=== PATIENT | female | born 1970 | race Caucasian/White ===

== ENCOUNTER 2022-06-03 16:11 | Outpatient (CLI) | payer BC, SELFPAY ==
[2022-06-03 17:30] LABS: Albumin* 4.6 g/dL (3.3-5.0); Chloride* 103 mmol/L (96-114); Sodium* 138 mmol/L (135-149)
[2022-06-03 17:33] LABS: Alanine Aminotransferase* 15 U/L (4-35); Alkaline Phosphatase* 71 U/L (40-150); Aspartate Amino Transferase* 23 U/L (12-35); Bilirubin Total* 0.7 mg/dL (0.1-1.5); Blood Urea Nitrogen* 16 mg/dL (7-30); Carbon Dioxide* 28 mmol/L (20-32); Creatinine* 0.8 mg/dL (0.5-1.5); Estimated Glomerular Filt Rate 88 ml/min; Glucose* 101 mg/dL (60-115); Total Protein* 6.9 g/dL (6.0-8.3)
[2022-06-03 17:34] LABS: Calcium* 9.2 mg/dL (8.4-10.6); Magnesium* 2.3 mg/dL (1.5-2.6)
== END 2022-06-03 16:12 | disposition home or self-care (01) ==
PROVIDERS: PCP Internal Medicine; Visit Provider Internal Medicine
DX: F41.9 Anxiety disorder, unspecified (principal)
CPT/HCPCS: 80053; 83735; 84443

== ENCOUNTER 2022-08-17 12:33 | Outpatient (CLI) | payer BC, SELFPAY ==
[2022-08-17 14:07] LABS: Cholesterol* 233 mg/dL (90-199)
[2022-08-17 14:08] LABS: HDL Cholesterol* 92 mg/dL (>=50); LDL Cholesterol Calculated 128 mg/dL (<100); Triglycerides* 64 mg/dL (40-149)
[2022-08-17 17:29] LABS: Chlamydia DNA Amplified* NOT DETECTED (No Detected); GC DNA Amplified* NOT DETECTED (No Detected)
== END 2022-08-17 12:34 | disposition home or self-care (01) ==
PROVIDERS: PCP Internal Medicine; Visit Provider Registered Nurse
DX: Z01.419 Encounter for gynecological examination (general) (routine) without abnormal findings (principal); Z13.6 Encounter for screening for cardiovascular disorders; Z11.3 Encounter for screening for infections with a predominantly sexual mode of transmission
CPT/HCPCS: 80061; 87491; 87591

== ENCOUNTER 2022-08-26 08:20 | Outpatient (CLI) | payer BC, SELFPAY ==
--- NOTE | 2022-08-26 08:45 | CRLHL7_ITS ---
For Patients: As a result of the Century Cures Act, medical imaging exams and procedure reports are released immediately into your electronic medical record. You may view this report before your referring provider. If you have questions, please contact your health care provider. INDICATION: Irregular menses. TECHNIQUE: Transabdominal and transvaginal pelvic ultrasound. FINDINGS: The uterus measures 9.0 x 5.4 x 6.7 cm. The endometrial stripe measures 12 mm transvaginally normal in a premenopausal female. Within the mid anterior upper uterine body there is a questionable isoechoic region measuring 2.3 x 0.8 x 1.1 cm. This could reflect an atypical appearing fibroid but this is not entirely certain. This does not convincingly impinge upon the endometrial stripe. Minimal free pelvic fluid likely physiologic. Normal appearing right ovary measured 3.7 x 1.5 x 2.1 cm. Normal-appearing left ovary measuring 3.2 x 1.3 x 1.1 cm. Blood flow is identified in the ovaries. IMPRESSION: 1. Endometrial stripe of 12 mm. This can be normal in a premenopausal female. 2. Questionable isoechoic lesion within the mid upper uterine myometrium somewhat nonspecific potentially an atypical appearing fibroid. 3. Normal ovaries. Dictated by Yefri Moyer MD @ 08/26/2022 9:39:43 AM (Electronically Signed)
== END 2022-08-26 08:21 | disposition home or self-care (01) ==
LOC: US 08:21
PROVIDERS: PCP Internal Medicine; Visit Provider Registered Nurse
DX: N92.6 Irregular menstruation, unspecified (principal); R93.89 Abnormal findings on diagnostic imaging of other specified body structures
CPT/HCPCS: 76830; 76856

== ENCOUNTER 2023-04-26 13:28 | Outpatient (CLI) | payer BC, SELFPAY ==
--- NOTE | 2023-04-26 13:40 | CRLHL7_ITS ---
For Patients: As a result of the Century Cures Act, medical imaging exams and procedure reports are released immediately into your electronic medical record. You may view this report before your referring provider. If you have questions, please contact your health care provider. BILATERAL SCREENING MAMMOGRAM WITH COMPUTER-AIDED DETECTION AND TOMOSYNTHESIS TECHNIQUE: CC and MLO views were obtained. These mammographic images have been obtained using full-field digital technique. These mammographic images were interpreted with the benefit of computer-aided detection. Breast Tomosynthesis was used in this interpretation. COMPARISON FILM: 11/26/21, 05/14/20, 08/29/18. FINDINGS: The breasts are heterogeneously dense, which may obscure small masses IMPRESSION: There is no radiographic evidence for malignancy. ASSESSMENT: BI-RADS Category 1: Negative RECOMMENDATION: Routine screening mammogram in 1 year. A lay language report of this examination will be provided to the patient. Aditya Brennan M.D. Diagnostic Radiologist [email or web address] YIFAN/Dictated by: Aditya Brennan MD @ 04/28/2023 12:53:00 PM (Electronically Signed)
== END 2023-04-26 13:29 | disposition home or self-care (01) ==
LOC: MAMMO 13:29
PROVIDERS: PCP Family Medicine; Visit Provider Family Medicine
DX: Z12.31 Encounter for screening mammogram for malignant neoplasm of breast (principal); R92.2 Inconclusive mammogram
CPT/HCPCS: 77063; 77067

== ENCOUNTER 2023-09-01 08:01 | Outpatient (CLI) | payer BC, SELFPAY | END 2023-09-01 08:02 | disposition home or self-care (01) | LOC: NFLDREF 09-14 08:43 | PROVIDERS: PCP Family Medicine; Referring Provider Family Medicine; Visit Provider Registered Nurse | DX: Z01.419 Encounter for gynecological examination (general) (routine) without abnormal findings (principal); Z13.6 Encounter for screening for cardiovascular disorders; Z13.29 Encounter for screening for other suspected endocrine disorder | CPT/HCPCS: 80061; 84443 ==

== ENCOUNTER 2023-09-08 10:53 | Outpatient (CLI) | payer BC, SELFPAY | END 2023-09-08 10:54 | disposition home or self-care (01) | LOC: NFLDREF 10:53 | PROVIDERS: PCP Family Medicine; Visit Provider Family Medicine | DX: I10 Essential (primary) hypertension (principal) | CPT/HCPCS: 80053 ==

== ENCOUNTER 2023-10-07 08:58 | Outpatient (CLI) | payer BC, SELFPAY | END 2023-10-07 08:59 | disposition home or self-care (01) | LOC: NFLDREF 10-14 07:43 | PROVIDERS: PCP Family Medicine; Referring Provider Family Medicine; Visit Provider Family Medicine | DX: I10 Essential (primary) hypertension (principal) | CPT/HCPCS: 80048 ==

== ENCOUNTER 2023-10-28 11:20 | Emergency (ER) | payer BC, SELFPAY ==
[2023-10-28 11:30] VITALS: BP 148/86; PULSE 75; RESP 18; TEMP 36.8; O2SAT 100; BMI 27.4
--- NOTE | 2023-10-28 11:39 | ED.GENADULT ---
HPI - General Adult General Time Seen by Provider: 11:39 Date Seen: 10/28/23 Chief complaint: Dizziness/Vertigo Stated complaint: nausea / dizzy / tingly limbs Time Seen by Provider: 10/28/23 11:26 Source: patient and RN notes reviewed Mode of arrival: ambulatory Limitations: no limitations History of Present Illness HPI narrative: This 53yo female is coming into the ED after calling clinic for a multitude of symptoms that have been present over the past week. She started feeling dizzy/lightheaded about a week ago, not spinning. She has felt exhausted and weak, difficulty sleeping this past week. She notes today that she is having upper abdominal discomfort with some heartburn symptoms, some regurgitant feeling and nausea. She did try a new smoothie recipe this am and wonders if this is contributing. She is on Losartan 25mg for blood pressure, started in August. She is on venlaxfaxine 150mg which was increased about 2 months ago from 75mg. She has felt imbalanced with walking at times. Her had to help her with the stairs couple nights ago. She did complete a 45minute walk this am. She feels that her cheeks on her face and her arms feel tingly, not numb, right now. Does feel some chest discomfort that she attributes to the heartburn feeling right now. She noted a bruise that just cross it up on her right outer arm, remembers no trauma. She is noting no bleeding of her gums when brushing her teeth. Related Data Home Medications Medication Instructions Recorded Confirmed multivitamin 1 tab PO QAM 08/17/22 10/12/23 cholecalciferol (vitamin D3) 25 25 mcg PO QDAY 03/16/23 10/12/23 mcg (1,000 unit) capsule vitamin B complex 2 cap PO QDAY 03/16/23 10/12/23 biotin 10,000 mcg/mL (10 mg/mL) mcg PO 08/31/23 10/12/23 oral liquid magnesium mal, threon, chelate mg PO 08/31/23 10/12/23 venlafaxine 150 mg 150 mg PO DAILY 08/31/23 10/12/23 capsule,extended release 24 hr Previous Rx's Medication Instructions Recorded losartan 25 mg tablet 25 mg PO QDAY #90 tabs 10/12/23 Allergies Allergy/AdvReac Type Severity Reaction Status Date / Time nitrofurantoin Allergy Intermediate Hives Verified 10/12/23 13:24 [From Macrobid] lanolin Allergy Mild Rash Verified 10/12/23 13:24 Review of Systems Status of ROS: Reports: 6 or more systems reviewed and unremarkable except as noted in History and below [facility] Medical History Hypertension ?I10 - Essential (primary) hypertension (ICD-10) Depression (02/09/10) ?F32.A - Depression, unspecified (ICD-10) Osteopenia ?M85.80 - Other specified disorders of bone density and structure, unspecified site (ICD-10) Central nervous system disorder (2014) ?G96.9 - Disorder of central nervous system, unspecified (ICD-10) Major depressive disorder (~2009) ?F32.9 - Major depressive disorder, single episode, unspecified (ICD-10) Surgical History History of colposcopy with cervical biopsy (09/2023) ?Z98.890 - Other specified postprocedural states (ICD-10) History of dilatation and curettage (2010) ?Z98.890 - Other specified postprocedural states (ICD-10) History of section (2011) ?Z98.891 - History of uterine scar from previous surgery (ICD-10) History of benign breast biopsy (1991) ?Z98.890 - Other specified postprocedural states (ICD-10) Family History Father Colon cancer, Onset Age: 80 Marquez syndrome Prostate cancer Paternal Grandmother Myocardial infarction, Onset Age: 75 Mother Breast cancer, Onset Age: 36 Family/Other Uterine cancer Depression Maternal Grandmother Breast cancer, Onset Age: 73 Aunt Breast cancer, Onset Age: 61 Stroke, Onset Age: 95 Paternal Grandfather Depression Family/Other Depression Social History Narrative: Patient is lives in same house with ex- for 3 years, works as a psych cut therapist in private practice, 1 son A exercise 1 to 2 times a week walking or swimming 45 minutes Nonsmoker About 4 alcoholic drinks a week What is your current living situation?: I presently have a place to live Problems where you live: no known problems In the past 12 months, utilities in danger of being shut off: no In past 12 months, lack of transportation kept you from medical appts, meetings, work, or getting things needed for daily living: no In the past 12 mos, have been you worried that your food would run out before you had money to buy more?: never true In the past 12 mos, the food you bought just didn't last and you didn't have money to buy more?: never true Smoking Status: Never smoker How often do you have a drink containing alcohol: never How often do you have six or more drinks on one occasion: Never AUDIT-C Alcohol total score: 0 Non-prescribed substance use: denies use How often does anyone, including family, friends and others, physically hurt you: never How often does anyone, including family, friends and others, insult or talk down to you: never How often does anyone, including family, friends and others, threaten you with harm: never How often does anyone, including family, friends and others, scream or curse at you: never Little interest or pleasure in doing things: more than half the days Feeling down, depressed, or hopeless: several days service: No Exam Const: Vital Signs, click to edit/add: Vital Signs - 24 hr 10/28/23 11:30 10/28/23 11:46 10/28/23 11:46 Temperature 98.2 F Pulse Rate [Pulse Oximeter] 75 Pulse Rate [orthos tatic lying Right Pulse Oximeter] 69 Pulse Rate [orthos tatic sitting Righ t Pulse Oximeter] 80 Pulse Rate [orthos tatic standing Rig ht Pulse Oximeter] 76 Respiratory Rate 18 Blood Pressure [Ri ght Upper Arm] 148/86 H Blood Pressure [or thostatic lying Ri ght Arm] 133/73 Blood Pressure [or thostatic sitting Right Arm] 118/83 Blood Pressure [or thostatic standing Right Arm] 129/96 H Pulse Oximetry 100 98 Oxygen Delivery Me thod Room Air Patient is alert, interactive, no apparent distress, well kept. Pupils equal round reactive, conjugate gaze, extraocular muscles intact. Normal symmetrical facial function. She feels light touch sensation symmetrically. Speech is normal. Neck supple, no adenopathy or masses. Lungs are clear, good air entry, no wheezing or crackles. CV regular rate and rhythm, no murmur, normal S1-S2, no S3-S4. Abdomen is soft, nontender, nondistended, no organomegaly, no rebound or guarding. She has no lower extremity edema. Patient was ambulatory into the ED of her own accord. No focal deficits noted in sensation, strength. She has no tremors. Small quarter-size purplish bruise on her outer right upper arm. No petechiae or significant bruising noted elsewhere. Documenting provider has reviewed patient's vital signs: yes Course Course ED Course: Patient has symptoms within multiple organ systems. She is complaining of lightheadedness/dizziness, sense of imbalance at times as well as heartburn, nausea, some upper abdominal discomfort, possible bruising but only 1 site on her arm. She will be on pulse oximetry and cardiac monitoring while here. Will obtain a head CT. Will get a full complement of labs. She will also have COVID testing done. Reevaluation(s) Time of Reevaluation #1: 14:00 Reevaluation #1: Reviewed normal head CT, normal labs with patient, no COVID, normal thyroid. She and I reviewed that I would like a 2nd it troponin on her. She feels her heartburn type symptoms started around 10:00 a.m. this morning. I would just like to get a follow-up troponin, if this is normal, do feel we can safely say that this is not an acute ischemic cardiac event. We did discuss omeprazole or proton pump inhibitor. She states she typically would just use yogurt if she is having some heartburn issues. She is not orthostatic based on vitals obtain by nursing staff. If 2nd troponin is negative, will discharge to home for further outpatient follow-up. Vital Signs Vital signs: Initial Vital Signs Temperature 98.2 F 10/28/23 11:30 Temperature Source Temporal Artery Scan 10/28/23 11:30 Pulse Rate 75 10/28/23 11:30 Pulse Rhythm Regular 10/28/23 11:30 Respiratory Rate 18 10/28/23 11:30 Blood Pressure 148/86 H 10/28/23 11:30 Blood Pressure Mean 106 H 10/28/23 11:30 Blood Pressure Position Supine 10/28/23 11:30 Pulse Oximetry 100 10/28/23 11:30 Oxygen Delivery Method Room Air 10/28/23 11:30 Vital Signs Temperature 98.2 F 10/28/23 11:30 Pulse Rate 75 10/28/23 11:30 Respiratory Rate 18 10/28/23 11:30 Blood Pressure 148/86 H 10/28/23 11:30 Pulse Oximetry 100 10/28/23 11:30 Oxygen Delivery Method Room Air 10/28/23 11:30 Temperature 98.2 F 10/28/23 11:30 Pulse Rate 69 10/28/23 11:46 Respiratory Rate 18 10/28/23 11:30 Blood Pressure 133/73 10/28/23 11:46 Pulse Oximetry 98 10/28/23 11:46 Oxygen Delivery Method Room Air 10/28/23 11:30 Medical Decision Making Lab Data Lab results reviewed: Yes I reviewed the patient's lab results Labs: Lab Results 10/28/23 10/28/23 10/28/23 Range/Units 12:21 12:44 14:01 WBC 5.78 (4.50-11.00) K/uL RBC 4.40 (4.00-5.20) m/uL Hgb 14.4 (12.0-16.0) gm/dL Hct 41.5 (33.0-51.0) % MCV 94 (80-100) fL MCH 33 (26-34) pg MCHC 35 (32-36) gm/dL RDW Coeff of Tony 11.5 (11.5-15.5) % Plt Count 332 (140-440) K/uL Neut % (Auto) 72.0 (42.0-72.0) % Lymph % (Auto) 17.5 L (20-44) % Lamar % (Auto) 8.1 (0.0-11.0) % Eos % (Auto) 1.7 (0.0-7.0) % Baso % (Auto) 0.7 (0.0-3.0) % Neut # (Auto) 4.16 (1.7-7.0) K/uL Lymph # (Auto) 1.00 (0.90-2.90) K/uL Lamar # (Auto) 0.50 (0.00-0.90) K/UL Eos # (Auto) 0.10 (0.00-0.50) K/uL Baso # (Auto) 0.04 (0.00-0.30) K/uL Abs Immat Gran (auto) 0.00 (0.00-0.30) K/uL Imm/Tot Granulo (auto) 0.0 % ESR 2 (2-20) mm/hr Sodium 136 (135-149) mmol/L Potassium 4.1 (3.6-5.1) mmol/L Chloride 101 (96-114) mmol/L Carbon Dioxide 28 (20-32) mmol/L Anion Gap 7 (7-15) mEq/L BUN 15 (7-30) mg/dL Creatinine 0.8 (0.5-1.5) mg/dL Estimated Creat Clear 62.84 Estimated GFR 87 ml/min Glucose 107 (60-115) mg/dL Calcium 9.3 (8.4-10.6) mg/dL Magnesium 2.3 (1.5-2.6) mg/dL Total Bilirubin 0.8 (0.1-1.5) mg/dL Direct Bilirubin 0.0 (0.0-0.5) mg/dL AST 29 (12-35) U/L ALT 17 (4-35) U/L Alkaline Phosphatase 73 (40-150) U/L Troponin I < 0.01 L (0.01-0.04) ng/mL C-Reactive Protein 0.5 (0.5-1.0) mg/dL NT-Pro-B Natriuret Pep 39 pg/mL Total Protein 7.4 (6.0-8.3) g/dL Albumin 4.7 (3.3-5.0) g/dL Lipase 94 (23-300) U/L TSH 1.700 (0.270-4.200) uIU/mL SARS-CoV-2 (PCR) Negative SARS-CoV-2 (Negative) Influenza Type A (PCR) Negative PCR FLU A (Negative) Influenza Type B (PCR) Negative PCR FLU B (Negative) RSV (PCR) Negative PCR RSV (Negative) POC Troponin I 0.00 L (0.01-0.04) ng/ml Imaging Data CT scan - head: Attestation: I have reviewed the pertinent imaging results. Radiologist's impression: Patient: SUE ALBRECHT Facility:?[facility] RIS Patient ID:?[id number] Site Patient ID:?[id number]. Site :?1970 Study:?CT-Head w/o-10/28/2023 12:01:07 PM Ordering Physician:Wilfred Golden Final Report: INDICATION: Dizzy, imbalance, tingly arms/face, sx one week TECHNIQUE: CT head without contrast. COMPARISON: MRI brain August 02, 2018. FINDINGS: CSF spaces: Within normal limits for age. Brain parenchyma and extra-axial spaces: The woodard-white differentiation is normal. No sign of mass effect, hemorrhage, or midline shift. No extra-axial fluid collection. Skull base and calvarium: The visualized paranasal sinuses and mastoid air cells demonstrate no acute or significant findings. The visualized orbits are grossly unremarkable. No skull fractures. IMPRESSION: No evidence of acute intracranial abnormality on this unenhanced CT. Please note that all CT scans at this facility use dose modulation, iterative reconstruction, and/or weight-based dosing when appropriate to reduce radiation dose to as low as reasonably achievable. Dictated by Tad Issa MD @ 10/28/2023 12:16:58 PM (Electronic Signature) ECG Data Attestation: I personally reviewed and interpreted this ECG as follows: (Normal sinus rhythm, 67 beats per minute. Flipped T-waves V1, poor R-wave progression anterior precordial leads but no other ST segment changes or T-wave abnormality outside V1. QT corrected 420 milliseconds.) Prior ECG tracings: not available for review Discharge Plan Discharge Clinical Impression: Heartburn, Dizziness Patient Disposition: Home, Self-Care Condition: Stable Instructions: GERD (Gastroesophageal Reflux Disease) (ED), Dizziness (ED) Additional Instructions: Continue on current medications. Please schedule follow-up in clinic within the next week to review symptoms, especially if they are ongoing. If at any point you feel you are worsening, have new or concerning symptoms, we are always here in the ER to re-evaluate you. Activity Level: Activity as Tolerated Discharge Diet: Heart Healthy (2 gm sodium, low fat) Prescriptions: No Action multivitamin Tablet 1 tab PO QAM losartan 25 mg tablet 25 mg PO QDAY Qty: 90 3RF cholecalciferol (vitamin D3) 25 mcg (1,000 unit) capsule 25 mcg PO QDAY vitamin B complex Capsule 2 cap PO QDAY magnesium mal, threon, chelate 200 mg magnesium/scoop powder PO venlafaxine 150 mg capsule,extended release 24hr 150 mg PO DAILY biotin 10,000 mcg/mL liquid PO Follow Up/Referrals: Ines Epps MD [Primary Care Provider] - Stand Alone Forms: [facility] Info Instructions
[2023-10-28 11:46] VITALS: BP 118/83; BP 129/96; BP 133/73; PULSE 69; PULSE 76; PULSE 80; O2SAT 98
--- NOTE | 2023-10-28 11:46 | CT_ITS ---
Patient: SUE JIMÉNEZ WARREN Facility:?[facility] RIS Patient ID:?[id number] Site Patient ID:?[id number]. Site :?1970 Study:?CT-Head w/o-10/28/2023 12:01:07 PM Ordering Physician:Wilfred Golden Final Report: INDICATION: Dizzy, imbalance, tingly arms/face, sx one week TECHNIQUE: CT head without contrast. COMPARISON: MRI brain August 02, 2018. FINDINGS: CSF spaces: Within normal limits for age. Brain parenchyma and extra-axial spaces: The woodard-white differentiation is normal. No sign of mass effect, hemorrhage, or midline shift. No extra-axial fluid collection. Skull base and calvarium: The visualized paranasal sinuses and mastoid air cells demonstrate no acute or significant findings. The visualized orbits are grossly unremarkable. No skull fractures. IMPRESSION: No evidence of acute intracranial abnormality on this unenhanced CT. Please note that all CT scans at this facility use dose modulation, iterative reconstruction, and/or weight-based dosing when appropriate to reduce radiation dose to as low as reasonably achievable. Dictated by Tad Issa MD @ 10/28/2023 12:16:58 PM Signed by:?Tad Issa MD @10/28/2023 12:16:58 PM (Electronic Signature)
[2023-10-28 12:30] LABS: Basophils Absolute Auto 0.04 K/uL (0.00-0.30); Basophils Percent Auto 0.7 % (0.0-3.0); Eosinophils Percent Auto 1.7 % (0.0-7.0); Hematocrit 41.5 % (33.0-51.0); Hemoglobin* 14.4 gm/dL (12.0-16.0); Lymphocytes Percent Auto 17.5 % (20-44); Mean Corpuscular HGB Conc 35 gm/dL (32-36); Mean Corpuscular Hemoglobin 33 pg (26-34); Mean Corpuscular Volume 94 fL (80-100); Monocytes Percent Auto 8.1 % (0.0-11.0); Neutrophils Absolute Auto 4.16 K/uL (1.7-7.0); Platelet Count* 332 K/uL (140-440); RDW Coefficient of Variation % 11.5 % (11.5-15.5); White Blood Count* 5.78 K/uL (4.50-11.00)
[2023-10-28 12:35] LABS: Slide Review Reflex No
[2023-10-28 12:45] LABS: Albumin* 4.7 g/dL (3.3-5.0); Chloride* 101 mmol/L (96-114)
[2023-10-28 12:46] LABS: Potassium* 4.1 mmol/L (3.6-5.1); Sodium* 136 mmol/L (135-149)
[2023-10-28 12:48] LABS: Bilirubin Total* 0.8 mg/dL (0.1-1.5); Carbon Dioxide* 28 mmol/L (20-32); Creatinine* 0.8 mg/dL (0.5-1.5); Est. Creatinine Clearance* 62.84; Estimated Glomerular Filt Rate 87 ml/min
[2023-10-28 12:49] LABS: Alanine Aminotransferase* 17 U/L (4-35); Alkaline Phosphatase* 73 U/L (40-150); Anion Gap 7 mEq/L (7-15); Aspartate Amino Transferase* 29 U/L (12-35); Blood Urea Nitrogen* 15 mg/dL (7-30); Calcium* 9.3 mg/dL (8.4-10.6); Glucose* 107 mg/dL (60-115); Lipase* 94 U/L (23-300); Magnesium* 2.3 mg/dL (1.5-2.6); Total Protein* 7.4 g/dL (6.0-8.3)
[2023-10-28 12:51] LABS: C Reactive Protein* 0.5 mg/dL (0.5-1.0)
[2023-10-28 13:11] LABS: NT Pro B Type NatriureticPept* 39 pg/mL; Troponin I* < 0.01 ng/mL (0.01-0.04)
[2023-10-28 13:20] LABS: Erythrocyte SedimentationRate* 2 mm/hr (2-20)
[2023-10-28 13:34] LABS: PCR FLU A Negative PCR FLU A (Negative); PCR FLU B Negative PCR FLU B (Negative); PCR RSV Negative PCR RSV (Negative); SARS PCR* Negative SARS-CoV-2 (Negative)
== END 2023-10-28 14:58 | disposition home or self-care (01) ==
PROVIDERS: Emergency Provider Family Medicine; PCP Family Medicine
DX: R42 Dizziness and giddiness (principal); R12 Heartburn
CPT/HCPCS: 36415; 70450; 80053; 82248; 83690; 83735; 83880; 84443; 84484; 85025; 85651; 86140; 87631; 93005; 94761; 99284; 99285

== ENCOUNTER 2024-07-16 11:18 | Outpatient (CLI) | payer BC, SELFPAY ==
--- NOTE | 2024-07-16 11:30 | CRLHL7_ITS ---
For Patients: As a result of the Century Cures Act, medical imaging exams and procedure reports are released immediately into your electronic medical record. You may view this report before your referring provider. If you have questions, please contact your health care provider. BILATERAL SCREENING MAMMOGRAM WITH COMPUTER-AIDED DETECTION AND TOMOSYNTHESIS TECHNIQUE: CC and MLO views were obtained. These mammographic images have been obtained using full-field digital technique. These mammographic images were interpreted with the benefit of computer-aided detection. Breast Tomosynthesis was used in this interpretation. COMPARISON FILM: 04/26/23, 11/26/21, 05/14/20. FINDINGS: The breasts are heterogeneously dense, which may obscure small masses. IMPRESSION: There is no radiographic evidence for malignancy. ASSESSMENT: BI-RADS Category 1: Negative RECOMMENDATION: Routine screening mammogram in 1 year. A lay language report of this examination will be provided to the patient. Yefri Moyer M.D. Diagnostic/Nuclear Medicine Radiologist [email or web address] ROC/ofelia SP/Dictated by: Yerfi Moyer MD @ 07/18/2024 12:08:00 PM (Electronically Signed)
== END 2024-07-16 11:19 | disposition home or self-care (01) ==
LOC: MAMMO 11:18
PROVIDERS: PCP Family Medicine; Visit Provider Family Medicine
DX: Z12.31 Encounter for screening mammogram for malignant neoplasm of breast (principal); R92.333 Mammographic heterogeneous density, bilateral breasts
CPT/HCPCS: 77063; 77067

== ENCOUNTER 2024-08-31 10:44 | Outpatient (CLI) | payer BC, SELFPAY ==
[2024-09-01 20:53] LABS: HPV Source Cervix; HPV, High Risk by TMA Not Detected
== END 2024-08-31 10:45 | disposition home or self-care (01) ==
PROVIDERS: PCP Family Medicine; Visit Provider Registered Nurse
DX: Z12.4 Encounter for screening for malignant neoplasm of cervix (principal)
CPT/HCPCS: 87624; 87625; 88141; 88142

== ENCOUNTER 2024-09-05 08:28 | Outpatient (CLI) | payer BC, SELFPAY | END 2024-09-05 08:29 | disposition home or self-care (01) | LOC: NFLDREF 09-07 16:51 | PROVIDERS: PCP Family Medicine; Referring Provider Family Medicine; Visit Provider Registered Nurse | DX: Z13.220 Encounter for screening for lipoid disorders (principal) | CPT/HCPCS: 80061 ==

== ENCOUNTER 2024-09-25 08:30 | Outpatient (CLI) | payer BC, SELFPAY | END 2024-09-25 08:31 | disposition home or self-care (01) | LOC: NFLDREF 09-26 03:51 | PROVIDERS: PCP Family Medicine; Referring Provider Family Medicine; Visit Provider Family Medicine | DX: E78.5 Hyperlipidemia, unspecified (principal); I10 Essential (primary) hypertension | CPT/HCPCS: 80053; 80061 ==

== ENCOUNTER 2024-10-30 08:39 | Outpatient (CLI) | payer BC, SELFPAY ==
--- NOTE | 2024-10-30 10:35 | P.ANES_ITS ---
Anesthesia Charges Start Date/Time Anesthesia Start Date: 10/30/24 Anesthesia Start Time: 10:06 Stop Date/Time Anesthesia Stop Date: 10/30/24 Anesthesia Stop Time: 10:35 Coding CPT Codes CPT Codes: EDUARDO LWR INTST NDSC NOS - 12104 ([id number]) P2 - PATIENT W/MILD SYST DISEASE, QK - THERAPEUTIC MASSAGE TECHNICIAN 2-4 CNCRNT ANES PROC, QX - EDUCATION GENERAL MANAGER SVC W/ MD MED DIRECTION
--- NOTE | 2024-10-30 10:35 | W.ANESCHARGE ---
Anesthesia Charges Start Date/Time Anesthesia Start Date: 10/30/24 Anesthesia Start Time: 10:06 Stop Date/Time Anesthesia Stop Date: 10/30/24 Anesthesia Stop Time: 10:35 Coding CPT Codes CPT Codes: EDUARDO LWR INTST NDSC NOS - 71471 ([id number]) P2 - PATIENT W/MILD SYST DISEASE, QK - HYDROLOGY TECHNICIAN 2-4 CNCRNT ANES PROC, QX - GUIDE ALPINE SVC W/ MD MED DIRECTION
--- NOTE | 2024-10-30 10:50 | P.ANES_ITS ---
Anesthesia Charges Start Date/Time Anesthesia Start Date: 10/30/24 Anesthesia Start Time: 10:06 Stop Date/Time Anesthesia Stop Date: 10/30/24 Anesthesia Stop Time: 10:35 Coding CPT Codes CPT Codes: EDUARDO LWR INTST NDSC NOS - 26406 ([id number]) P2 - PATIENT W/MILD SYST DISEASE, QK - CAR CLERK PULLMAN 2-4 CNCRNT ANES PROC, QX - TELEVISION AND RADIO REPAIRER SVC W/ MD MED DIRECTION
--- NOTE | 2024-10-30 10:50 | W.ANESCHARGE ---
Anesthesia Charges Start Date/Time Anesthesia Start Date: 10/30/24 Anesthesia Start Time: 10:06 Stop Date/Time Anesthesia Stop Date: 10/30/24 Anesthesia Stop Time: 10:35 Coding CPT Codes CPT Codes: EDUARDO LWR INTST NDSC NOS - 50386 ([id number]) P2 - PATIENT W/MILD SYST DISEASE, QK - GEOPHYSICAL MANAGER 2-4 CNCRNT ANES PROC, QX - MELTER ASSISTANT SVC W/ MD MED DIRECTION
== END 2024-10-30 08:40 | disposition home or self-care (01) ==
LOC: OP CLINIC 08:40
PROVIDERS: PCP Family Medicine; Visit Provider Surgery
DX: Z12.11 Encounter for screening for malignant neoplasm of colon (principal); D12.8 Benign neoplasm of rectum; Z86.0100 Personal history of colon polyps, unspecified
CPT/HCPCS: 00811; 45385; 88305; J2704